=== PATIENT | male | born 1990 | race Caucasian/White ===

== ENCOUNTER 2019-07-16 05:47 | Emergency (ER) | payer BC, MEDICAID, SELFPAY ==
[2019-07-16 05:49] VITALS: BP 143/97; PULSE 90; RESP 16; TEMP 36.9; O2SAT 100; BMI 26.9
--- NOTE | 2019-07-16 06:29 | ED.VIS.DENTA ---
History of Present Illness Chief Complaint: Dental Informant: Patient Onset: Days Context: Gradual Onset Timing: Continuous Current Severity: Mild Maximum Severity: Moderate Associated Symptoms: Facial Swellling Narrative: Patient is a 28-year-old male with history of dental abscesses presenting with facial swelling. Patient states he has had increased pain of his right upper front teeth for the past few days. He describes as dull and aching. This morning when he woke up he knows he had increased swelling of his face. He is worried that he might have an abscess. Patient states he is able to get into his dentist on , and 2 days. He took Tylenol ibuprofen before coming in and it did improve his pain. He denies any associated fever or chills. Denies any difficulty swallowing or chewing. He denies any difficulty breathing or handling his secretions. He denies any other complaints at this time. Patient has recently cut back on tobacco use but still smokes some. Prior similar symptoms: Yes Past Medical History - Allergies and Home Meds Allergies/Adverse Reactions: Allergies No Known Allergies Allergy (Verified 07/16/19 05:48) Primary Care Physician: Care Physician,No Primary [Primary Care Provider] - Past Medical History: None Surgical History: noncontributory Smoking Status: Former smoker Review of Systems General: Denies: Chills, Fever, Sweats Eyes: Denies: Visual changes - bilaterally, Diplopia ENT: Reports: - - dental pain- right upper, right cheek swelling, nasal congestion . Denies: Left ear pain, Right ear pain, Rhinorrhea, Sore throat Cardiovascular: Denies: Chest pain, Palpitations Respiratory: Denies: Dyspnea, Cough, Dyspnea on exertion Gastrointestinal: Denies: Abdominal pain, Nausea, Vomiting, Diarrhea Genitourinary: Denies: Dysuria, Hematuria, Frequency Musculoskeletal: Denies: Back pain, Extremity Pain Skin: Denies: Rash, Wounds Neurological: Denies: Headache, Weakness, Numbness Physical Exam Vital Signs/Narrative: Vital Signs Temp Pulse Resp BP Pulse Ox 07/16/19 05:49 98.5 F 90 16 143/97 H 100 Inital Vital Signs reviewed: Yes General: Well nourished, Well developed Head: Normocephalic, Atraumatic ENT: Moist mucous membranes, No rhinorrhea, TM's clear, - - Mild edema of the right lower cheek, no associated erythema Mouth/Throat: Normal inspection lips/gums, Normal oral mucosa, No dental tenderness, No focal abscess, Normal posterior oropharynx, No sublingual edema, Widespread dental decay, - - Patient points to his top right canine and incisors as the area of his discomfort. He has significant erosion of the teeth secondary to dental decay but no obvious abscess or inflammatory changes. Negative for: Tenderness on tooth percussion, Trismus Neck: Supple, No lymphadenopathy, Nontender, No JVD Cardiovascular: Regular rate, Regular rhythm, No murmurs Respiratory: No distress, CTA bilaterally, Chest nontender Extremities: Nontender, No edema Skin: Normal color, No rash Neurological: Alert, Oriented x3, Cranial nerves II-XII grossly intact, Normal Strength, Normal Sensation Psychological: Normal affect Diagnostic/Tx/Re-eval - Medical Decision Making Patient is evaluated for facial swelling and dental pain. He does not have an obvious abscess amenable to drainage. He started on Augmentin. Patient has no findings consistent with Rell's angina and has no airway compromise. Patient states his pain is mild as he took Tylenol Motrin for coming in. He is given first dose of Augmentin in the ER. To be discharged home with a 10-day course. He has a dentist to follow-up with. Patient is counseled on signs and symptoms requiring return to the emergency room. Patient verbalizes agreement and understand this plan. Patient discharged home in stable and improved condition. ED Disposition - Plan for ED Patient: Disposition: Home or Assisted Living Diagnosis: Dentalgia, Right facial swelling Instructions: DENTAL ABSCESS w/ Facial Cellulitis Prescriptions: Amoxicillin/Potassium Clav [Augmentin 875-125 Tablet] 1 ea PO BID #20 tab Prescription Printed Additional Instructions: Make sure you follow-up with your dentist as soon as possible. At this time there is no abscess that is ready for me to drain. Continue to alternate Tylenol and ibuprofen as needed for pain. Make sure he complete the course of antibiotics unless instructed otherwise by your dentist. Return to the emergency room if you have any worsening symptoms.
[2019-07-16] MEDS: Amox/Clavulanate 875 MG Tablet PO (06:41)
== END 2019-07-16 06:42 | disposition home or self-care (01) ==
PROVIDERS: Emergency Provider Emergency Medicine
DX: K08.89 Other specified disorders of teeth and supporting structures (principal); R22.0 Localized swelling, mass and lump, head; F17.200 Nicotine dependence, unspecified, uncomplicated
CPT/HCPCS: 99283

== ENCOUNTER 2022-12-03 15:53 | Emergency (ER) | payer OTHER, MEDICAID, SELFPAY ==
[2022-12-03 15:53] VITALS: BP 154/104; PULSE 98; RESP 16; RESP 18; TEMP 36.1; BMI 26.1
[2022-12-03 16:53] VITALS: RESP 17; O2SAT 99
--- NOTE | 2022-12-03 16:54 | EDS_ITS ---
HPI History of Present Illness Chief Complaint: Ear Problem Informant: patient Narrative Narrative: Patient here multiple complaints. Past day diarrhea nonbloody with nausea however tolerating oral fluids no current nausea. No vomiting. No fevers. No abdominal pain. Reports pain right TMJ region. No pain in the ear. Muffled sounds left ear. No drainage. Uses Q-tips. No sore throat. No past medical history. PFSH PFSH Home Medications amoxicillin 875 mg-potassium clavulanate 125 mg tablet 1 ea PO BID #20 tabs 07/16/19 [Rx Last Taken Unknown] ondansetron 4 mg disintegrating tablet 4 mg PO Q8H PRN PRN Nausea #10 tabs 12/03/22 [Rx Last Taken Unknown] Allergy/AdvReac Type Severity Reaction Status Date / Time No Known Allergies Allergy Verified 07/16/19 05:48 Social History Smoking Status: Current every day smoker tobacco type: e-cigarettes ROS ROS ED Constitutional Constitutional ED: Denies chills, fever(s) or sweats Eyes Eyes: Denies change in vision ENT ENT ED: Reports other Details: Right TMJ, left muffled sounds ; Denies dysphagia or sore throat Cardiovascular Cardiovascular: Denies chest pain, leg edema, palpitations or racing heartbeat Respiratory/Chest Respiratory/Chest: Denies cough, dyspnea or dyspnea on exertion Gastrointestinal Gastrointestinal: Reports diarrhea and nausea; Denies abdominal pain or vomiting Genitourinary Genitourinary ED: Denies dysuria, hematuria or urinary frequency Musculoskeletal Musculoskeletal: Denies back pain, extremity pain or neck pain Integumentary Denies rash or wounds Neurologic Neurologic: Denies headache(s), paresthesias or weakness EXAM Physical Exam Const Vital Signs: 12/03/22 15:53 12/03/22 15:53 Temperature 96.9 F L 96.9 F L Temperature Source Temporal Temporal Pulse Rate 98 98 Respiratory Rate 16 18 Blood Pressure 154/104 H 154/104 H Blood Pressure Mean 120 120 Positive well nourished and well developed General Appearance ED: well developed and NAD HEENT Reports moist mucous membranes HEENT Narrative: Bilateral cerumen impaction. Pain right TMJ reproducible with opening closing there is no subluxation. Posterior pharynx normal. normocephalic and atraumatic Eyes PERRL, EOMs intact bilaterally and conjunctivae normal General Eye ED: Yes normal appearance of both eyes Neck no lymphadenopathy and supple General: Negative for tenderness Chest Wall Chest: Negative for tenderness Resp normal respiratory effort and normal air movement Effort and Inspection: symmetric chest movement; Negative for respiratory distress Cardio regular rate, regular rhythm and no murmurs Peripheral Pulses: pulses 2+ throughout GI normal to inspection, nondistended, normoactive bowel sounds and non-tender Palpation: Negative for guarding or rebound tenderness present Back/Spine no CVA tenderness and no thoracic nor lumbar tenderness Extremity normal to inspection General Extremety ED: Negative for edema or tenderness General Extremity: Negative for edema Neuro oriented x3 and no sensory deficits noted Sensorium / Orientation: awake and alert Skin no rashes or lesions noted and no wounds MDM MDM MDM Narrative Medical decision making narrative: Interventions / MDM: Differential diagnosis: Nonspecific diarrhea, right TMJ, cerumen impaction bilaterally Diagnosis considered but do not suspect: Otitis media however clinically denies fevers or any drainage, My EKG interpretation: N/A Imaging independently reviewed and interpreted by myself: N/A External documents reviewed: N/A Test considered but not ordered:N/A ED course: Nontoxic vital stable. Clinical history exam concern for TMJ on the right side nonspecific diarrhea. He has bilateral cerumen impaction. Risks d iscussed with flushing in the ED for tympanic membrane rupture, he understands this and did not want this performed due to risk. With right TMJ he has Tylenol ibuprofen at home. He is referred to ENT for outpatient evaluation and treatment for both TMJ and his cerumen impaction.: Current nausea for written for Zofran to use to continue oral fluids for his diarrhea. No recent antibiotics for C. difficile concerns. Outpatient follow-up. All questions were answered. Re-evaluation: stable Disposition discussed with patient/family/significant other: Patient Case discussed with consulting clinician: N/A Discharge Plan Triage Chief Complaint: Ear Problem ED Provider: Robert Paiz Dx/Rx/DC Orders Clinical Impression: Bilateral impacted cerumen, TMJ (temporomandibular joint syndrome), Diarrhea Instructions: TMJ Tx, ED Diarrhea, Unknown Cause, ED Cerumen Impaction Treated, ED TMJ Syndrome Prescriptions: New ondansetron [ondansetron] 4 mg tablet,disintegrating 4 mg PO Q8H PRN PRN (Reason: Nausea) Qty: 10 0RF No Action amoxicillin-pot clavulanate 1 EACH tablet 1 ea PO BID Qty: 20 0RF Primary Care Provider: Care Physician,No Primary Referrals: Gio Patel MD [Med Staff - Active Staff] - 3-5 Days Care Physician,No Primary [Primary Care Provider] - Disposition Disposition: Home, Self Care
== END 2022-12-03 17:35 | disposition home or self-care (01) ==
LOC: ED 16:55
PROVIDERS: Emergency Provider Emergency Medicine; Visit Provider Emergency Medicine
DX: H61.23 Impacted cerumen, bilateral (principal); R19.7 Diarrhea, unspecified; F17.290 Nicotine dependence, other tobacco product, uncomplicated; R11.0 Nausea
CPT/HCPCS: 99282